=== PATIENT | female | born 1990 | race Hispanic/Latino ===

== ENCOUNTER 2020-10-22 20:43 | Emergency (ER) | payer OTHER ==
[2020-10-22] MEDS ORDERED: IBUPROFEN 600 MG TABLET ONE (21:11)
[2020-10-22] MEDS ORDERED: CYCLOBENZAPRINE HCL 10 MG TABLET ONE (21:12)
== END 2020-10-22 21:21 | disposition home or self-care (01) ==
LOC: EDH 20:43
DX: S46.811A Strain of other muscles, fascia and tendons at shoulder and upper arm level, right arm, initial encounter (principal); X58.XXXA Exposure to other specified factors, initial encounter; Y93.89 Activity, other specified; Y92.89 Other specified places as the place of occurrence of the external cause; Y99.8 Other external cause status